=== PATIENT | female | born 1985 ===

== ENCOUNTER 2018-03-18 13:08 | Emergency (ER) | payer SELFPAY ==
[2018-03-18] MEDS ORDERED: Ketorolac Tromethamine 30 MG/ML VIAL ONE (13:50)
[2018-03-18 14:04] LABS: Pregnancy Test - Urine (BHCG) Negative (Negative); Pregu Control Background? CLEAR/WHITE (CLR/WHITE); Pregu Control Bar Appear? YES (CONTROL BAR); Specific Gravity 1.006 (1.002-1.036)
== END 2018-03-18 14:04 | disposition home or self-care (01) ==
LOC: ERS 13:08
DX: K04.7 Periapical abscess without sinus (principal); F31.9 Bipolar disorder, unspecified
CPT/HCPCS: 81025; 96372; J1885